=== PATIENT | female | born 1990 | race Caucasian/White ===

== ENCOUNTER 2017-02-14 08:53 | Emergency (ER) | payer BC ==
[2017-02-14 08:58] VITALS: BP 115/62; PULSE 87; TEMP 98.1; BMI 21.4
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
[2017-02-14] MEDS ORDERED: CYCLOBENZAPRINE HCL 10 MG TABLET (FP) ONE (10:30)
[2017-02-14] MEDS ORDERED: KETOROLAC TROMETHAMINE 60 MG/2 ML VIAL ONE (10:30)
[2017-02-14] MEDS ORDERED: KETOROLAC TROMETHAMINE 60 MG/2 ML VIAL IM ONE (10:36)
[2017-02-14] MEDS ORDERED: CYCLOBENZAPRINE HCL 10 MG TABLET (FP) PO ONE (10:36)
== END 2017-02-14 10:47 | disposition home or self-care (01) ==
LOC: JERFT 08:53
PROC: 3E0233Z Introduction of Anti-inflammatory into Muscle, Percutaneous Approach (ICD-10-PCS; principal; 2017-02-14)
DX: S29.011A Strain of muscle and tendon of front wall of thorax, initial encounter (principal); M62.830 Muscle spasm of back; X58.XXXA Exposure to other specified factors, initial encounter; Y93.89 Activity, other specified; Y92.89 Other specified places as the place of occurrence of the external cause
CPT/HCPCS: 84703; 99281-25

== ENCOUNTER 2017-07-26 11:49 | Emergency (ER) | payer BC ==
[2017-07-26 11:59] VITALS: BP 109/71; PULSE 76; TEMP 98.5; BMI 22.3
--- NOTE | 2017-07-26 12:33 | PDOC ---
History of Present Illness - General Chief Complaint: Injury Stated Complaint: INJURY Time Seen by Provider: 07/26/17 12:08 History Source: Patient Exam Limitations: No Limitations - History of Present Illness Initial Comments: 07/26/17 12:39 Patient is a 27-year-old female with no past medical history who presents to the emergency department today for right ankle pain. Patient states she was jumping on her niece's trampoline 2 days ago when she fell trying to get off of the trampoline. She heard a crack from her right ankle. She believes that she rolled it. She states it hurts to bear weight on the ankle. She has not taken any medication for pain. Denies weakness in the foot, numbness and tingling, fevers, chills. Past History - Travel Traveled outside of the country in the last 30 days: No Close contact w/someone who was outside of country & ill: No - Past Medical History Allergies/Adverse Reactions: Allergies Allergy/AdvReac Type Severity Reaction Status Date / Time No Known Allergies Allergy Verified 07/26/17 11:55 Home Medications: Ambulatory Orders NK [No Known Home Medication] 07/26/17 COPD: No - Immunization History Immunization Up to Date: Yes - Suicide/Smoking/Psychosocial Hx Smoking Status: No Smoking History: Never smoked Have you smoked in the past 12 months: No Number of Cigarettes Smoked Daily: 0 Information on smoking cessation initiated: No Hx Alcohol Use: No Drug/Substance Use Hx: No Substance Use Type: None Review of Systems - Review of Systems Able to Perform ROS?: Yes Comments:: 07/26/17 12:39 CONSTITUTIONAL: Absent: fever, chills, diaphoresis, generalized weakness, malaise, loss of appetite HEENT: Absent: rhinorrhea, nasal congestion, throat pain, throat swelling, difficulty swallowing, mouth swelling, ear pain, eye pain, visual Changes CARDIOVASCULAR: Absent: chest pain, loss of consciousness, palpitations, irregular heart rate, peripheral edema RESPIRATORY: Absent: cough, shortness of breath, dyspnea with exertion, orthopnea, wheezing, stridor, hemoptysis GASTROINTESTINAL: Absent: abdominal pain, abdominal distension, nausea, vomiting, diarrhea, constipation, melena, hematochezia GENITOURINARY: Absent: dysuria, frequency, urgency, hesitancy, hematuria, flank pain, genital pain MUSCULOSKELETAL: Present: R ankle pain. Absent: arthralgia, joint swelling SKIN: Absent: rash, itching, pallor HEMATOLOGIC/IMMUNOLOGIC: Absent: easy bleeding, easy bruising, lymphadenopathy, frequent infections ENDOCRINE: Absent: unexplained weight gain, unexplained weight loss, heat intolerance, cold intolerance NEUROLOGIC: Absent: headache, focal weakness or paresthesias, dizziness, unsteady gait, seizure, mental status changes, bladder or bowel incontinence PSYCHIATRIC: Absent: anxiety, depression, suicidal or homicidal ideation, hallucinations. Is the patient limited [place] proficient: No *Physical Exam - Vital Signs Last Vital Signs Temp Pulse Resp BP Pulse Ox 98.5 F 76 15 109/71 98 07/26/17 11:55 07/26/17 11:55 07/26/17 11:55 07/26/17 11:55 07/26/17 11:55 - Physical Exam Comments: 07/26/17 12:39 GENERAL: The patient is awake, alert, and fully oriented, in no acute distress. HEAD: Normal with no signs of trauma. EYES: Pupils equal, round and reactive to light, extraocular movements intact, sclera anicteric, conjunctiva clear. EXTREMITIES: R ankle with mild swelling over the lateral and medial malleous. TTP of R medial malleous, arch. (-) Rivera test. B/L ankles: strength 5/5, sensation grossly intact, posterior tibialis pulse 2+ b/l. Normal range of motion of all extremities. NEUROLOGICAL: Normal speech, normal gait. PSYCH: Normal mood, normal affect. SKIN: Warm, Dry, normal turgor, no rashes or lesions noted. Medical Decision Making - Medical Decision Making 07/26/17 12:42 Patient is a 27-year-old female no past medical history who presents with 2 days of right ankle pain. Based on exam most likely a sprain at this time. However will obtain x-ray to rule out subtle fracture. 1.right ankle x-ray. 2.Motrin 3.reevaluate 07/26/17 13:35 X-ray is negative for fracture. Will d/c home with instructions for ankle sprain. *DC/Admit/Observation/Transfer Diagnosis at time of Disposition: Ankle sprain Qualifiers: Encounter type: initial encounter Involved ligament of ankle: unspecified ligament Laterality: right Qualified Code(s): S93.401A - Sprain of unspecified ligament of right ankle, initial encounter - Discharge Dispostion Disposition: HOME Condition at time of disposition: Good Admit: No - Referrals Referrals: Gary Freire MD [Primary Care Provider] - Eliecer Tripp MD [Staff Physician] - - Patient Instructions Printed Discharge Instructions: DI for Ankle Sprain Additional Instructions: You have an ankle sprain. Your x-ray is negative for fracture/broken bones. Please wear the khai wrap and air cast for comfort. Keep your R leg elevated when sitting to reduce swelling. Take ibuprofen 800mg 3 times a day to help with pain and swelling, not to exceed 3,000mg a day. Ice the ankle for 20 minute intervals. Follow up with orthopedics in one week if symptoms are not improving, Return to the ED if you have worsening pain, numbness and tingling in the foot, fever, or any changes in your symptoms - Post Discharge Activity Forms/Work/School Notes: Back to Work
[2017-07-26] MEDS ORDERED: IBUPROFEN 400 MG TABLET (FP) PO ONE ×2 (12:34→13:06)
== END 2017-07-26 13:57 | disposition home or self-care (01) ==
LOC: JERFT 11:49
PROC: 2W3QX1Z Immobilization of Right Lower Leg using Splint (ICD-10-PCS; principal; 2017-07-26)
DX: S93.401A Sprain of unspecified ligament of right ankle, initial encounter (principal); W17.89XA Other fall from one level to another, initial encounter; Y93.44 Activity, trampolining; Y92.89 Other specified places as the place of occurrence of the external cause; Y99.8 Other external cause status
CPT/HCPCS: 73610-TC-RT; 73630-TC-RT; 84703; 99282-25

== ENCOUNTER 2021-04-29 23:02 | Emergency (ER) | payer BC ==
[2021-04-29] MEDS ORDERED: ACETAMINOPHEN 1000 MG/100 ML VIAL (NON FORMULARY) IVPB ONE (23:22)
[2021-04-29] MEDS ORDERED: SODIUM CHLORIDE 1,000 ML IV STA (23:22)
[2021-04-29] MEDS ORDERED: METOCLOPRAMIDE HCL INJECTION 10 MG/2 ML VIAL IVPB ONE (23:22)
[2021-04-29] MEDS ORDERED: METOCLOPRAMIDE HCL INJECTION 10 MG/2 ML VIAL ONE (23:27)
[2021-04-29] MEDS ORDERED: ACETAMINOPHEN INJECTION 100 ML IVPB ONE (23:27)
[2021-04-29 23:55] VITALS: BMI 24.9
[2021-04-30 01:35] VITALS: BP 92/52; PULSE 86; TEMP 98.3
== END 2021-04-30 02:10 | disposition home or self-care (01) ==
LOC: FER 23:02
PROC: 3E033GC Introduction of Other Therapeutic Substance into Peripheral Vein, Percutaneous Approach (ICD-10-PCS; principal; 2021-04-29)
DX: R51.9 Headache, unspecified (principal); R11.2 Nausea with vomiting, unspecified
CPT/HCPCS: 99284-25; J0131